=== PATIENT | female | born 1970 | race Caucasian/White ===

== ENCOUNTER 2016-11-06 09:02 | Emergency (ER) | payer OTHER | END 2016-11-06 11:19 | disposition home or self-care (01) | LOC: FER 09:02 | DX: G62.9 Polyneuropathy, unspecified (principal); Z88.0 Allergy status to penicillin; Z86.711 Personal history of pulmonary embolism; Z86.718 Personal history of other venous thrombosis and embolism; Z87.442 Personal history of urinary calculi | CPT/HCPCS: 72050; 99283 ==

== ENCOUNTER 2020-12-28 17:07 | Emergency (ER) | payer OTHER ==
[2020-12-28] MEDS ORDERED: ILOTYCIN1 GM OS (18:27)
== END 2020-12-28 18:47 | disposition home or self-care (01) ==
LOC: FER 17:07
DX: S05.02XA Injury of conjunctiva and corneal abrasion without foreign body, left eye, initial encounter (principal); Z88.0 Allergy status to penicillin; X58.XXXA Exposure to other specified factors, initial encounter
CPT/HCPCS: 99283

== ENCOUNTER 2021-09-25 08:59 | Emergency (ER) | payer OTHER ==
[~2021-09-25 08:59] MED LIST: ILOTYCIN1 GM OS
[2021-09-25 10:31] LABS: BASOPHIL 0.2 % (0-2); EOSINOPHIL 0.2 % (0-5); HCT 46.4 % (37.0-47.0); HGB 15.5 g/dl (12.5-16.0); LYMPHOCYTE 5.1 % (15-48); MCH 30.9 pg (25.0-31.0); MCHC 33.4 g/dL (32.0-36.0); MCV 92.6 fL (78.0-100.0); MONOCYTE 3.1 % (0-12); MPV 8.2 fL (6.0-9.5); NEUTROPHIL 91.1 % (41-80); NRBC 0; PLT 219 K/uL (150-400); RBC 5.01 M/uL (4.20-5.40); RDW 12.8 % (11.5-14.0)
[2021-09-25 10:32] LABS: WBC 9.8 K/uL (4.0-10.5)
[2021-09-25 10:39] LABS: CORONAVIRUS 2019 SARS-COV-2 NEGATIVE (NEGATIVE); INFLUENZA A NAA NEGATIVE (NEGATIVE)
[2021-09-25 10:50] LABS: ALKALINE PHOSHATASE 101 U/L (46-116); ALT 41 U/L (14-59); AST 25 U/L (15-37); BILIRUBIN - TOTAL 0.6 mg/dL (0.2-1.0); BUN 17 mg/dL (7-18); BUN/CREAT RATIO (CALC) 18.1 RATIO; CHLORIDE 104 mmol/L (98-107); CO2 (BICARBONATE) 26 mmol/L (21-32); CREATININE 0.94 mg/dL (0.51-0.95); GLOBULIN (CALCULATION) 3.8 g/dL; GLUCOSE 157 mg/dL (74-106); POTASSIUM 4.2 mmol/L (3.5-5.1); TOTAL PROTEIN 7.8 g/dL (6.4-8.2)
[2021-09-25 11:17] LABS: BAND 6 % (0-10); EOSINOPHIL(M) 1 % (0-5); LYMPHOCYTE(M) 4 % (15-48); MONOCYTE(M) 1 % (0-12); NEUTROPHILS(M) 87 % (41-80); TOTAL CELL COUNT 100
[2021-09-25 11:18] LABS: BASOPHIL(M) 1 % (0-2); PLATELET ESTIMATE NORMAL; PLATELET MORPHOLOGY NORMAL
[2021-09-25 12:56] LABS: BILIRUBIN NEGATIVE (NEGATIVE); BLOOD NEGATIVE Ery/uL (NEGATIVE); CLARITY CLEAR (CLEAR); COLOR YELLOW (YELLOW); GLUCOSE (U) NORMAL (NORMAL); LEUKOCYTES NEGATIVE Leu/uL (NEGATIVE); NITRITE NEGATIVE (NEGATIVE); PROTEIN NEGATIVE (NEGATIVE); SPECIFIC GRAVITY 1.025 (1.001-1.030); UROBILINOGEN 0.2 mg/dL (0.2-1.0)
[2021-09-25] MEDS ORDERED: ONDANSETRON ODT4 MG PO (13:19)
== END 2021-09-25 13:45 | disposition home or self-care (01) ==
LOC: FER 08:59
PROVIDERS: Emergency Medicine
DX: B34.9 Viral infection, unspecified (principal); E66.9 Obesity, unspecified; Z20.822 Contact with and (suspected) exposure to COVID-19; Z88.0 Allergy status to penicillin
CPT/HCPCS: 36415; 80053; 81003; 84484; 93005; J2405; J7030; U0002